=== PATIENT | male | born 1955 | race Hispanic/Latino ===

== ENCOUNTER 2019-08-22 11:24 | Emergency (ER) | payer OTHER ==
[~2019-08-22 11:24] MED LIST: AMLO5TAB9 PO; ASPI-1197 PO; FISH1CAP63 PO; GEMF600T5 PO; GLIP10TA9 PO; LISI-613 PO; METF-446 PO; NIAC500T22 PO; SERT25TA5 PO; SIMV-46 PO
[2019-08-22 11:49] LABS: BASOPHILS % (AUTO) 0.7 % (0.0-5.0); EOSINOPHILS % (AUTO) 1.7 % (0.0-8.0); LYMPHOCYTES % (AUTO) 16.1 % (21.0-51.0); MEAN CORPUSCULAR HEMOGLOBIN 33.9 pg (27.0-33.0); MEAN CORPUSCULAR HGB CONC 35.4 g/dL (32.0-36.0); MEAN CORPUSCULAR VOLUME 95.6 fL (79-99); MONOCYTES % (AUTO) 6.8 % (3.0-13.0); NEUTROPHILS % (AUTO) 74.3 % (40.0-77.0); PLATELET COUNT (AUTO) 165 K/uL (130-400); RED BLOOD CELL COUNT(AUTO) 3.87 MIL/uL (4.50-6.20); RED CELL DISTRIBUTION WIDTH 14.5 % (11.0-15.5); WHITE BLOOD COUNT (AUTO) 7.6 K/uL (4.8-10.8)
[2019-08-22 11:56] LABS: CREATININE 1.1 mg/dL (0.5-1.5); POTASSIUM 3.7 mmol/L (3.5-5.1)
[2019-08-22] MEDS ORDERED: IPRATROPIUM/ALBUTEROL SULFATE 3 ML SOLUTION IH ONE (12:33)
[2019-08-22] MEDS ORDERED: BENZONATATE 100 MG CAPSULE PO ONE (12:33)
[2019-08-22 12:50] LABS: B-TYPE NATRIURETIC PEPTIDE 20 pg/mL (0-100)
== END 2019-08-22 13:28 | disposition home or self-care (01) ==
LOC: EDH 11:24
DX: J06.9 Acute upper respiratory infection, unspecified (principal); N64.9 Disorder of breast, unspecified; E11.9 Type 2 diabetes mellitus without complications; I10 Essential (primary) hypertension; Z87.891 Personal history of nicotine dependence
CPT/HCPCS: 36415; 71046; 80048; 83880; 85025; 87804; 87880; 94640

== ENCOUNTER 2020-01-03 12:32 | Emergency (ER) | payer OTHER ==
[2020-01-03] MEDS ORDERED: ONDANSETRON HCL 4 MG/2 ML VIAL ONE (13:09)
[2020-01-03] MEDS ORDERED: MORPHINE SULFATE 4 MG/1ML SYG ONE (13:10)
[2020-01-03 13:18] LABS: CREATININE 1.3 mg/dL (0.5-1.5); POTASSIUM 4.6 mmol/L (3.5-5.1)
[2020-01-03 13:23] LABS: ALBUMIN 3.6 g/dL (3.5-5.0); BILIRUBIN,TOTAL 0.3 mg/dL (0.2-1.0); TOTAL PROTEIN, SERUM 7.7 g/dL (6.0-8.3)
[2020-01-03 13:26] LABS: INR 0.99 (0.85-1.15); PARTIAL THROMBOPLASTIN TIME 29.7 SEC (26.3-35.5); PROTHROMBIN TIME 10.7 SEC (9.6-11.6)
[2020-01-03 13:39] LABS: B-TYPE NATRIURETIC PEPTIDE 8 pg/mL (0-100)
[2020-01-03 13:42] LABS: BASOPHILS % (AUTO) 0.9 % (0.0-5.0); EOSINOPHILS % (AUTO) 1.9 % (0.0-8.0); HEMATOCRIT 37.8 % (42-54); LYMPHOCYTES % (AUTO) 19.2 % (21.0-51.0); MEAN CORPUSCULAR HEMOGLOBIN 33.6 pg (27.0-33.0); MEAN CORPUSCULAR HGB CONC 34.7 g/dL (32.0-36.0); MEAN CORPUSCULAR VOLUME 96.9 fL (79-99); MONOCYTES % (AUTO) 9.1 % (3.0-13.0); NEUTROPHILS % (AUTO) 68.7 % (40.0-77.0); PLATELET COUNT (AUTO) 222 K/uL (130-400); RED CELL DISTRIBUTION WIDTH 15.1 % (11.0-15.5); WHITE BLOOD COUNT (AUTO) 5.3 K/uL (4.8-10.8)
== END 2020-01-03 16:10 | disposition home or self-care (01) ==
LOC: EDH 12:32
DX: S46.012A Strain of muscle(s) and tendon(s) of the rotator cuff of left shoulder, initial encounter (principal); I10 Essential (primary) hypertension; E11.9 Type 2 diabetes mellitus without complications; Z85.528 Personal history of other malignant neoplasm of kidney; X58.XXXA Exposure to other specified factors, initial encounter; Y93.89 Activity, other specified; Y92.89 Other specified places as the place of occurrence of the external cause; Y99.8 Other external cause status
CPT/HCPCS: 36415; 71045; 73030; 80053; 82550; 83880; 84484; 85025; 85378; 85610; 85730; 93005; 96374; 96375; 99285; J2270; J2405

== ENCOUNTER 2020-03-22 06:48 | Emergency (ER) | payer OTHER ==
[2020-03-22] MEDS ORDERED: SODIUM CHLORIDE 0.9% 1000ML 1,000 ML IV ONE (06:49)
[2020-03-22] MEDS ORDERED: ONDANSETRON HCL 4 MG/2 ML VIAL ONE ×2 (07:20→08:09)
[2020-03-22 08:07] LABS: BASOPHILS % (AUTO) 0.5 % (0.0-5.0); EOSINOPHILS % (AUTO) 1.6 % (0.0-8.0); HEMATOCRIT 30.4 % (42-54); LYMPHOCYTES % (AUTO) 9.1 % (21.0-51.0); MEAN CORPUSCULAR HEMOGLOBIN 29.3 pg (27.0-33.0); MEAN CORPUSCULAR HGB CONC 31.9 g/dL (32.0-36.0); MEAN CORPUSCULAR VOLUME 91.8 fL (79-99); MONOCYTES % (AUTO) 7.3 % (3.0-13.0); NEUTROPHILS % (AUTO) 81.1 % (40.0-77.0); PLATELET COUNT (AUTO) 251 K/uL (130-400); RED BLOOD CELL COUNT(AUTO) 3.31 MIL/uL (4.50-6.20); RED CELL DISTRIBUTION WIDTH 14.6 % (11.0-15.5); WHITE BLOOD COUNT (AUTO) 9.6 K/uL (4.8-10.8)
[2020-03-22 08:32] LABS: ALBUMIN 3.3 g/dL (3.5-5.0); BILIRUBIN,TOTAL 0.3 mg/dL (0.2-1.0); CREATININE 1.8 mg/dL (0.5-1.5); POTASSIUM 5.1 mmol/L (3.5-5.1); TOTAL PROTEIN, SERUM 7.5 g/dL (6.0-8.3)
[2020-03-22 09:03] LABS: APPEARANCE,URINE CLEAR (CLEAR); BILIRUBIN,URINE NEGATIVE (NEGATIVE); COLOR,URINE YELLOW (YELLOW); GLUCOSE, URINE (UA) NEGATIVE (NEGATIVE); KETONES,URINE NEGATIVE (NEGATIVE); LEUKOCYTE ESTERASE ,URINE NEGATIVE (NEGATIVE); NITRATE,URINE NEGATIVE (NEGATIVE); OCCULT BLOOD,URINE NEGATIVE (NEGATIVE); PH,URINE 5.5 (5.0-8.0); PROTEIN,URINE NEGATIVE (NEGATIVE); UROBILINOGEN,URINE 0.2 mg/dL (0.2-1.0)
[2020-03-22] MEDS ORDERED: ASPIRIN 325 MG TABLET ONE (10:45)
[2020-03-22] MEDS ORDERED: FUROSEMIDE 10 MG/ML 4ML VIAL ONE (10:46)
[2020-03-23] MEDS ORDERED: PROM25TA7 PO ×3 (18:28→18:33)
[2020-03-23] MEDS ORDERED: CYAN-52 PO ×2 (18:28)
[2020-03-23] MEDS ORDERED: PAZO200T PO ×2 (18:28)
[2020-03-23] MEDS ORDERED: FERR325T22 PO ×2 (18:28)
[2020-03-23] MEDS ORDERED: FOLI0.8T PO ×2 (18:28)
[2020-03-23] MEDS ORDERED: LEVO50TA11 PO ×2 (18:33)
== END 2020-03-22 10:07 | disposition home or self-care (01) ==
LOC: EDH 06:48
DX: E86.0 Dehydration (principal); R11.2 Nausea with vomiting, unspecified; R19.7 Diarrhea, unspecified; E11.9 Type 2 diabetes mellitus without complications; I10 Essential (primary) hypertension; Z85.528 Personal history of other malignant neoplasm of kidney
CPT/HCPCS: 36415; 74176; 80053; 81003; 82150; 83690; 84484; 85025; 93005; 96361; 96374; 99285; J2405; J7030; J1940

== ENCOUNTER 2020-03-22 18:37 | Inpatient (IN) | payer OTHER ==
[~2020-03-22] VITALS: Ht 170.2 cm; Wt 81.6 kg
[2020-03-22 19:55] LABS: BASOPHILS % (AUTO) 0.5 % (0.0-5.0); HEMATOCRIT 29.4 % (42-54); LYMPHOCYTES % (AUTO) 9.9 % (21.0-51.0); MEAN CORPUSCULAR HEMOGLOBIN 29.2 pg (27.0-33.0); MEAN CORPUSCULAR HGB CONC 32.3 g/dL (32.0-36.0); MEAN CORPUSCULAR VOLUME 90.5 fL (79-99); NEUTROPHILS % (AUTO) 78.4 % (40.0-77.0); PLATELET COUNT (AUTO) 242 K/uL (130-400); RED BLOOD CELL COUNT(AUTO) 3.25 MIL/uL (4.50-6.20); RED CELL DISTRIBUTION WIDTH 14.7 % (11.0-15.5); WHITE BLOOD COUNT (AUTO) 8.2 K/uL (4.8-10.8)
[2020-03-22 20:08] LABS: INR 1.04 (0.85-1.15); PARTIAL THROMBOPLASTIN TIME 31.8 SEC (26.3-35.5); PROTHROMBIN TIME 11.2 SEC (9.6-11.6)
[2020-03-22 20:18] LABS: APPEARANCE,URINE Clear (CLEAR); BILIRUBIN,URINE Negative (NEGATIVE); COLOR,URINE Yellow (YELLOW); GLUCOSE, URINE (UA) Negative (NEGATIVE); KETONES,URINE Negative (NEGATIVE); LEUKOCYTE ESTERASE ,URINE Trace (NEGATIVE); NITRATE,URINE Negative (NEGATIVE); OCCULT BLOOD,URINE Negative (NEGATIVE); PH,URINE 5.5 (5.0-8.0); PROTEIN,URINE Negative (NEGATIVE); UROBILINOGEN,URINE 0.2 mg/dL (0.2-1.0)
[2020-03-22 20:49] LABS: BACTERIA,URINE Rare /HPF (None Seen); RBC,URINE 0-1 /HPF (0-1); SQUAMOUS EPITHELIAL CELL,UR 0-2 /HPF (0-2)
[2020-03-22 20:57] LABS: CARBON DIOXIDE 20 mmol/L (21-32); CHLORIDE 101 mmol/L (101-111); CREATININE 1.6 mg/dL (0.5-1.5); GLOMERULAR FILTR. RATE CALC 47 mL/min (>60); GLUCOSE,RANDOM 138 mg/dL (70-105); POTASSIUM 4.7 mmol/L (3.5-5.1); SODIUM SERUM 132 mmol/L (136-145); UREA NITROGEN, BLOOD 27 mg/dL (7-18)
[2020-03-22 21:08] LABS: ALANINE AMINOTRANSFERASE 14 U/L (12-78); ALBUMIN 3.3 g/dL (3.5-5.0); ASPARTATE AMINOTRANSFERASE 30 U/L (10-37); BILIRUBIN,TOTAL 0.3 mg/dL (0.2-1.0); CREATINE KINASE, TOTAL 41 U/L (21-232); MYOGLOBIN 61 ng/mL (10-92); TOTAL PROTEIN, SERUM 7.8 g/dL (6.0-8.3); TROPONIN I < 0.04 ng/mL (0.00-0.06)
[2020-03-22] MEDS ORDERED: ONDANSETRON HCL 4 MG/2 ML VIAL IVP PRN (22:00)
[2020-03-22] MEDS ORDERED: ACETAMINOPHEN 325 MG TAB PO PRN (22:00)
[2020-03-22] MEDS ORDERED: DEXTROSE 50%-WATER 50 ML DISP.SYRIN IV PRN (22:00)
[2020-03-22] MEDS ORDERED: MORPHINE SULFATE 2 MG/ML 1ML SYG IVP PRN (22:00)
[2020-03-22] MEDS ORDERED: GLUCAGON 1MG KIT 1 MG ML IM PRN (22:00)
[2020-03-23] MEDS ORDERED: ONDANSETRON HCL 4 MG/2 ML VIAL ONE (04:11)
[2020-03-23] MEDS ORDERED: MORPHINE SULFATE 4 MG/1ML SYG ONE (04:11)
[2020-03-23 04:35] LABS: BASOPHILS % (AUTO) 0.4 % (0.0-5.0); EOSINOPHILS % (AUTO) 0.7 % (0.0-8.0); HEMATOCRIT 27.3 % (42-54); LYMPHOCYTES % (AUTO) 8.9 % (21.0-51.0); MEAN CORPUSCULAR HEMOGLOBIN 29.7 pg (27.0-33.0); MEAN CORPUSCULAR HGB CONC 32.6 g/dL (32.0-36.0); MONOCYTES % (AUTO) 11.2 % (3.0-13.0); NEUTROPHILS % (AUTO) 78.4 % (40.0-77.0); PLATELET COUNT (AUTO) 209 K/uL (130-400); RED CELL DISTRIBUTION WIDTH 14.9 % (11.0-15.5); WHITE BLOOD COUNT (AUTO) 9.6 K/uL (4.8-10.8)
[2020-03-23 05:15] LABS: CREATININE 1.3 mg/dL (0.5-1.5); MAGNESIUM 1.6 mg/dL (1.80-2.40); POTASSIUM 4.2 mmol/L (3.5-5.1)
[2020-03-23] MEDS: INSULIN R PO SS1 SQ SCH ×3 (07:30→20:46)
[2020-03-23] MEDS ORDERED: DEXTROSE 5%-WATER 1,000 ML IV ONE (14:14)
[2020-03-23 16:25] VITALS: BP 94/63
[2020-03-23] MEDS: DEXTROSE 5 % AND 0.9 % NACL 1,000 ML IV SCH (17:24)
[2020-03-23] MEDS ORDERED: CYAN-52 PO ×2 (18:28)
[2020-03-23] MEDS ORDERED: FERR325T22 PO ×2 (18:28)
[2020-03-23] MEDS ORDERED: PAZO200T PO ×2 (18:28)
[2020-03-23] MEDS ORDERED: PROM25TA7 PO ×3 (18:28→18:33)
[2020-03-23] MEDS ORDERED: FOLI0.8T PO ×2 (18:28)
[2020-03-23] MEDS ORDERED: LEVO50TA11 PO ×2 (18:33)
[2020-03-23 19:55] VITALS: BP 126/93
[2020-03-24 00:01] VITALS: BP 119/72
[2020-03-24 03:57] VITALS: BP 115/64
[2020-03-24] MEDS: INSULIN R PO SS1 SQ SCH ×4 (05:57→20:38)
[2020-03-24 08:04] VITALS: BP 133/78
[2020-03-24 11:12] VITALS: BP 125/83
[2020-03-24] MEDS: LOPERAMIDE 1 MG/7.5 ML UDCUP PO SCH (15:26)
[2020-03-24 16:42] VITALS: BP 132/81
[2020-03-24] MEDS: DEXTROSE 5 % AND 0.9 % NACL 1,000 ML IV SCH (17:09)
[2020-03-24 20:00] VITALS: BP 114/70
[2020-03-25] VITALS: BP 134/75
[2020-03-25 04:00] VITALS: BP 123/78
[2020-03-25 05:54] LABS: ALBUMIN 2.7 g/dL (3.5-5.0); CREATININE 1.2 mg/dL (0.5-1.5); PHOSPHORUS 4.3 mg/dL (2.5-4.9); POTASSIUM 4.6 mmol/L (3.5-5.1)
[2020-03-25] MEDS: INSULIN R PO SS1 SQ SCH ×2 (06:11→11:05)
[2020-03-25 07:57] VITALS: BP 124/76
[2020-03-25 11:29] VITALS: BP 119/75
[2020-03-25] MEDS: LOPERAMIDE 1 MG/7.5 ML UDCUP PO SCH (14:30)
--- NOTE | 2020-03-25 15:45 | NUR ---
DISCHARGE PATIENT/SPOUSE GIVEN DISCHARGE INSTRUCTIONS VIA TEACH BACK. 24G PIV TO RFA DISCONTINUED, TIP INTACT. PATIENT TO MAKE FOLLOW UP APPOINTMENTS WITH DR. HUERTA, DR. HUFFMAN, AND DR. BURT. PATIENT TO CONTINUE HOME MEDICATIONS. PATIENT/SPOUSE INSTRUCTED TO FOLLOW UP WITH DR. HUFFMAN IF SYMPTOMS OF NAUSEA OR VOMITING WORSEN. PATIENT STABLE AT THIS TIME. PATIENT WHEELED TO [facility] FOR DISCHARGE BY DANNY MANUEL.
== END 2020-03-25 15:38 | disposition home or self-care (01) | DRG 683 ==
LOC: EDH 18:37 → EDHIP 19:18 → 3CH 03-23 16:04
PROVIDERS: ADMIT Internal Medicine Infectious Disease; ATTEND Internal Medicine Infectious Disease
DX: N17.9 Acute kidney failure, unspecified (principal); C64.9 Malignant neoplasm of unspecified kidney, except renal pelvis; C79.9 Secondary malignant neoplasm of unspecified site; E86.0 Dehydration; E11.22 Type 2 diabetes mellitus with diabetic chronic kidney disease; I12.9 Hypertensive chronic kidney disease with stage 1 through stage 4 chronic kidney disease, or unspecified chronic kidney disease; R62.7 Adult failure to thrive; N18.9 Chronic kidney disease, unspecified; Z85.528 Personal history of other malignant neoplasm of kidney; D64.9 Anemia, unspecified; E78.5 Hyperlipidemia, unspecified; E66.9 Obesity, unspecified; R19.7 Diarrhea, unspecified; F32.9 Major depressive disorder, single episode, unspecified; Z68.28 Body mass index [BMI] 28.0-28.9, adult; Z90.5 Acquired absence of kidney; Z90.49 Acquired absence of other specified parts of digestive tract; Z83.3 Family history of diabetes mellitus; Z80.8 Family history of malignant neoplasm of other organs or systems; Z80.1 Family history of malignant neoplasm of trachea, bronchus and lung
CPT/HCPCS: 36415; 71045; 74176; 80048; 80053; 80069; 81001; 81003; 82150; 82550; 82948; 83605; 83690; 83735; 83874; 84145; 84484; 85025; 85610; 85730; 86900; 86901; 87040; 87088; 93005; 96361; 96374; G0378; J1940; J2270; J2405; J7030; J7042; J7070